=== PATIENT | male | born 1955 | race Caucasian/White ===

== ENCOUNTER → 2017-03-15 12:47 | Outpatient (CLI) | payer BC ==
[2017-03-16 07:23] LABS: IMMUNOGLOBULIN E 1010 IU/mL (0-100)
== END | disposition home or self-care (01) ==
LOC: D.RT 10:00
PROVIDERS: Internal Medicine Pulmonary Disease
DX: J44.9 Chronic obstructive pulmonary disease, unspecified (principal)

== ENCOUNTER → 2017-05-03 09:33 | Outpatient (CLI) | payer BC ==
[2017-05-03 10:35] LABS: CREATININE - SERUM 1.1 mg/dL (0.6-1.3)
== END | disposition home or self-care (01) ==
LOC: D.LAB 09:33 → D.CT 10:30
PROVIDERS: Internal Medicine Pulmonary Disease
DX: J90 Pleural effusion, not elsewhere classified (principal)

== ENCOUNTER 2017-05-30 08:53 | Outpatient (CLI) | payer BC ==
[~2017-05-30] VITALS: Ht 177.8 cm; Wt 90.9 kg
[2017-05-30] MEDS ORDERED: SINGULAIR10 MG PO (10:15)
[2017-05-30] MEDS ORDERED: ADVAIR 250/501 DISK INH (10:16)
[2017-05-30] MEDS ORDERED: FLOMAX0.4 MG PO (10:16)
[2017-05-30] MEDS ORDERED: PROVENTIL HFA6.7 GM INH (10:16)
[2017-05-30] MEDS ORDERED: OMEPRAZOLE20 M1 PO (10:16)
[2017-05-30 10:22] VITALS: BP 116/76; Ht 177.8 cm; Wt 90.9 kg
[2017-05-30 10:29] LABS: BASOPHILS 0.5 % (0-2); EOSINOPHILS 4.2 % (0-7); HEMATOCRIT 45.9 % (42.0-54.0); HEMOGLOBIN 15.4 g/dL (13.5-17.5); IMMATURE GRANULOCYTES 0.1 % (0-5); LYMPHOCYTES 31.7 % (15-50); MCH 31.1 pg (26.0-34.0); MCHC 33.6 g/dL (31.0-37.0); MCV 92.7 fL (80.0-100.0); MEAN PLATELET VOLUME 10.6 fL (7.4-10.4); NEUTROPHILS 54.5 % (40-80); PLATELET COUNT 212 10x3/uL (130-400); RBC 4.95 10x6/uL (4.20-6.10); RDW 14.1 % (11.5-14.5); WBC 7.4 10x3/uL (4.8-10.8)
[2017-05-30 10:39] LABS: APTT 26.6 SECONDS (22.8-39.4); INR 0.99 (0.85-1.17); PROTIME 12.9 SECONDS (11.6-15.0)
[2017-05-30] MEDS ORDERED: NYSTATIN ORAL SU5 ML PO (11:56)
--- NOTE | 2017-05-30 12:00 | NUR ---
RECEIVED POST BRONCHOSCOPY, COMPLETED AT 1140. UNDERSTANDS NPO UNTIL 1240. AT BEDSIDE. O2 ON AT 2LNC. SEE FREQUENT VITAL SIGN SHEET.
[2017-05-31 19:10] LABS: ACID FAST SMEAR Negative (()); AFB SPECIMEN PROCESSING Concentration (())
[2017-06-05 14:21] LABS: FUNGUS STAIN Final report (()); FUNGUS STAIN RESULT 1 Yeast observed (())
== END 2017-05-30 13:10 | disposition home or self-care (01) ==
LOC: D.OPS 08:53
PROVIDERS: Internal Medicine Pulmonary Disease
DX: J90 Pleural effusion, not elsewhere classified (principal); J44.9 Chronic obstructive pulmonary disease, unspecified; J45.998 Other asthma; K21.9 Gastro-esophageal reflux disease without esophagitis; G47.33 Obstructive sleep apnea (adult) (pediatric); R05 Cough; Z87.891 Personal history of nicotine dependence; M06.9 Rheumatoid arthritis, unspecified; N40.0 Benign prostatic hyperplasia without lower urinary tract symptoms; F41.9 Anxiety disorder, unspecified; Z01.812 Encounter for preprocedural laboratory examination

== ENCOUNTER 2018-05-01 08:18 | Outpatient (CLI) | payer BC ==
[2017-05-30 10:22] VITALS: BMI 28.7
[~2018-05-01 08:18] MED LIST: ADVAIR 250/501 DISK INH; FLOMAX0.4 MG PO; NYSTATIN ORAL SU5 ML PO; OMEPRAZOLE20 M1 PO; PROVENTIL HFA6.7 GM INH; SINGULAIR10 MG PO
[2018-05-13] MEDS ORDERED: PROTONIX40 MG PO (11:23)
[2018-05-13] MEDS ORDERED: PROSCAR5 MG PO (11:23)
[2018-05-13] MEDS ORDERED: ADVAIR 250/501 DISK INH (11:24)
[2018-05-13] MEDS ORDERED: ARAVA10 MG PO (11:25)
== END 2018-05-01 09:50 ==
LOC: D.OPS 08:18
DX: K21.9 Gastro-esophageal reflux disease without esophagitis (principal)

== ENCOUNTER 2018-05-15 06:56 | Day surgery (SDC) | payer BC ==
[2018-05-13 12:03] LABS: BASOPHILS 0.4 % (0-2); EOSINOPHILS 2.7 % (0-7); HEMATOCRIT 45.8 % (42.0-54.0); HEMOGLOBIN 15.4 g/dL (13.5-17.5); IMMATURE GRANULOCYTES 0.1 % (0-5); LYMPHOCYTES 31.6 % (15-50); MCH 31.2 pg (26.0-34.0); MCHC 33.6 g/dL (31.0-37.0); MCV 92.7 fL (80.0-100.0); MEAN PLATELET VOLUME 10.3 fL (7.4-10.4); MONOCYTES 11.4 % (2-11); NEUTROPHILS 53.8 % (40-80); PLATELET COUNT 205 10x3/uL (130-400); RBC 4.94 10x6/uL (4.20-6.10); RDW 14.6 % (11.5-14.5); WBC 7.4 10x3/uL (4.8-10.8)
[2018-05-13 12:17] LABS: CALC OSMOLALITY 283 mosm/kg (275-300); CALCIUM 8.7 mg/dL (8.5-10.1); CARBON DIOXIDE 27.8 mmol/L (21.0-32.0); CHLORIDE - SERUM 110 mmol/L (98-107); GLUCOSE 95 mg/dL (74-106); POTASSIUM - SERUM 3.8 mmol/L (3.5-5.1); SODIUM 143 mmol/L (136-145); UREA NITROGEN 10 mg/dL (7-18); eGFR NON AFRICAN AMERICAN 81 mL/min (90-120)
[~2018-05-15] VITALS: Ht 179.1 cm; Wt 95.5 kg
--- NOTE | ~2018-05-15 | OP ---
PATIENT NAME: FABIAN HERNANDEZ MEDICAL RECORD: [id number] :57 LOCATION:[facility] ADMISSION DATE: SURGEON: HARISH SOMMER MD DATE OF OPERATION: 05/15/2018 PREOPERATIVE DIAGNOSES: 1. Gastroesophageal reflux disease. 2. Hiatal hernia. 3. Tobacco dependence syndrome. 4. Chronic obstructive pulmonary disease. 5. Asthma. 6. Arthritis. POSTOPERATIVE DIAGNOSES: 1. Gastroesophageal reflux disease. 2. Hiatal hernia. 3. Tobacco dependence syndrome. 4. Chronic obstructive pulmonary disease. 5. Asthma. 6. Arthritis. PROCEDURE: Laparoscopic hiatal hernia repair with Jacquie fundoplication. SURGEON: Harish Sommer MD REPORT OF PROCEDURE: The patient's abdomen was prepped and draped in sterile fashion. A Veress needle was inserted in the left upper quadrant and the abdomen was insufflated. Under direct visualization, an 11-mm Visiport trocar was inserted in the midline just above the umbilicus. I could then see the Veress needle and there was no sign of any injury to bowel or surrounding structures. A 12-mm trocar was then placed in the left subcostal region, a 5-mm trocar was placed in the epigastrium, a 5-mm trocar was placed in left lateral abdomen and the final 5-mm trocar was placed in the right lateral subcostal region. The patient's left lobe of the liver was elevated. At this point, we could see the stomach extending up into the chest, about a third of the stomach was extending up into the thoracic cavity. This would pull down easily, but upon release would fall back up into the chest. We began our dissection on the lesser omentum. This was taken down using Harmonic scalpel up to the right side of the right jesus. We continued our dissection anteriorly and posteriorly until we had this portion of the hernia sac released. We continued our dissection through the thoracic cavity up into probably around the mid esophagus. We then approached the greater curvature of the stomach and took down the short gastrics using Harmonic scalpel. This was continued up to the left side of the right jesus. As we dissected the hernia sac free, we eventually were able to get a 360-degree inspection of the esophagus. We cleared out any attachments that were present to the esophagus up to about the mid thoracic inlet. At this point, the stomach easily laid in the abdominal cavity with about 2 cm of esophagus visible. We then reapproximated the esophageal hiatus using interrupted 0 Polydek times 3. We then performed a posterior 360-degree wrap of the fundus of the stomach around the distal esophagus. This was sutured into place with 0 Polydek times 3 with the top and the bottom suture incorporating a bite of the esophagus. The wrap appeared to be in good position and did not appear to be too tight. The indwelling OG tube was then removed easily. The abdomen was irrigated out and care was taken to assure there was no sign of any active bleeding. At this point, the liver retractor was removed. The 11 and 12-mm OPERATIVE REPORT [id number] FABIAN HERNANDEZ trocar site fascias were then closed with interrupted 0 Vicryls using a Haroldo-Diaz suture passer device. The ports and insufflation were then removed. The incisions were infused with a total of 10 mL of 0.25% Marcaine with epinephrine and then closed with subcutaneous 5-0 Monocryl. COMPLICATIONS: None. CONDITION: Stable. ANESTHESIA: General endotracheal and local. BLOOD LOSS: Minimal. TRANSINT:[id number] Voice Confirmation ID: [id number] DOCUMENT ID: [id number] HARISH SOMMER MD at 1418 CC: MARTHA ALVAREZ MD and SARITA WILEY DO [id number] DICTATION DATE: 05/15/18 1305 [employer]IATION ELECTRICIAN: 05/15/18 1410 [facility] 05/16/18 [facility] [address] [place] [address]
[~2018-05-15 06:56] MED LIST changes: +ARAVA10 MG PO; +PROSCAR5 MG PO; +PROTONIX40 MG PO
[2018-05-15 07:37] VITALS: BP 131/80; BMI 29.3
[2018-05-15 14:50] VITALS: BP 114/72
[2018-05-15 16:35] VITALS: Ht 179.1 cm; Wt 95.5 kg
[2018-05-15 20:06] VITALS: BP 129/72
[2018-05-15 23:21] VITALS: BP 114/76
[2018-05-16 05:40] LABS: BASOPHILS 0.1 % (0-2); EOSINOPHILS 0 % (0-7); HEMATOCRIT 44.6 % (42.0-54.0); HEMOGLOBIN 14.7 g/dL (13.5-17.5); IMMATURE GRANULOCYTES 0.2 % (0-5); LYMPHOCYTES 13.5 % (15-50); MCH 30.6 pg (26.0-34.0); MCV 92.9 fL (80.0-100.0); MEAN PLATELET VOLUME 10.9 fL (7.4-10.4); MONOCYTES 11.1 % (2-11); NEUTROPHILS 75.1 % (40-80); PLATELET COUNT 223 10x3/uL (130-400); RDW 14.3 % (11.5-14.5)
[2018-05-16 05:44] LABS: CALC OSMOLALITY 281 mosm/kg (275-300); CALCIUM 8.1 mg/dL (8.5-10.1); CARBON DIOXIDE 24.8 mmol/L (21.0-32.0); CHLORIDE - SERUM 108 mmol/L (98-107); CREATININE - SERUM 0.8 mg/dL (0.6-1.3); GLUCOSE 105 mg/dL (74-106); POTASSIUM - SERUM 3.7 mmol/L (3.5-5.1); SODIUM 142 mmol/L (136-145); UREA NITROGEN 10 mg/dL (7-18); eGFR NON AFRICAN AMERICAN > 90 mL/min (90-120)
[2018-05-16 05:57] VITALS: BP 100/63
[2018-05-16 09:20] VITALS: BP 117/78
[2018-05-16 12:14] VITALS: BP 117/78
[2018-05-16] MEDS ORDERED: HYDROCODONE-APA1 TAB PO (12:56)
[2018-05-16] MEDS ORDERED: REGLAN10 MG PO (12:57)
[2018-05-16 14:38] VITALS: BP 113/68
== END 2018-05-16 16:45 | disposition home or self-care (01) ==
LOC: D.OPS 06:56 → D.MS 13:39 → D.OPS 05-16 16:45
PROVIDERS: Surgery
DX: K21.9 Gastro-esophageal reflux disease without esophagitis (principal); K44.9 Diaphragmatic hernia without obstruction or gangrene; F17.200 Nicotine dependence, unspecified, uncomplicated; J44.9 Chronic obstructive pulmonary disease, unspecified; M19.90 Unspecified osteoarthritis, unspecified site; Z01.812 Encounter for preprocedural laboratory examination

== ENCOUNTER → 2019-06-08 07:38 | Outpatient (CLI) | payer BC ==
[2018-05-15 16:35] VITALS: BMI 29.7
[~2019-06-08 07:38] MED LIST changes: +HYDROCODONE-APA1 TAB PO; +REGLAN10 MG PO
== END | disposition home or self-care (01) ==
LOC: D.RT 07:38
PROVIDERS: ATTEND Internal Medicine Pulmonary Disease
DX: J44.9 Chronic obstructive pulmonary disease, unspecified (principal)

== ENCOUNTER → 2019-08-10 08:24 | Outpatient (CLI) | payer OTHER ==
[2018-05-15 16:35] VITALS: BMI 29.7
== END | disposition home or self-care (01) ==
LOC: D.RAD 08:24
PROVIDERS: ATTEND Pediatrics
DX: M06.02 Rheumatoid arthritis without rheumatoid factor, elbow (principal); J44.9 Chronic obstructive pulmonary disease, unspecified; M25.531 Pain in right wrist; M54.5 Low back pain